=== PATIENT | female | born 1985 | race Hispanic/Latino ===

== ENCOUNTER 2017-05-21 11:06 | Inpatient (IN) | payer MEDICAID ==
[~2017-05-21] VITALS: Ht 162.6 cm; Wt 99.3 kg
[2017-05-21] MEDS ORDERED: LACTATED RINGERS 1000ML 1,000 ML IV PRN (11:34)
[2017-05-21] MEDS ORDERED: LACTATED RINGERS 1000ML 1,000 ML IV ONE ×3 (11:41→13:25)
[2017-05-21] MEDS ORDERED: NALOXONE HCL 0.4 MG/1 ML ML IV PRN (11:45)
[2017-05-21] MEDS ORDERED: LACTATED RINGERS 500 ML 500 ML IV PRN (11:45)
[2017-05-21] MEDS ORDERED: EPHEDRINE SULFATE 50 MG/ML AMPULE IVP PRN (11:45)
[2017-05-21 11:56] LABS: HEMATOCRIT 33.5 % (36-48); MEAN CORPUSCULAR HEMOGLOBIN 28.2 pg (27.0-33.0); MEAN CORPUSCULAR HGB CONC 33.7 g/dL (32.0-36.0); MEAN CORPUSCULAR VOLUME 83.8 fL (79-99); PLATELET COUNT (AUTO) 274 K/uL (130-400); RED BLOOD CELL COUNT(AUTO) 3.99 MIL/uL (4.00-5.50); RED CELL DISTRIBUTION WIDTH 13.2 % (11.0-15.5); WHITE BLOOD COUNT (AUTO) 12.2 K/uL (4.8-10.8)
[2017-05-21] MEDS ORDERED: PROMETHAZINE HCL 25 MG/ML 1ML AMPULE IM SCH (12:00)
[2017-05-21 12:02] LABS: APPEARANCE,URINE Clear (CLEAR); BILIRUBIN,URINE Negative (NEGATIVE); COLOR,URINE Dark Yellow (YELLOW); GLUCOSE, URINE (UA) Negative (NEGATIVE); KETONES,URINE Trace mg/dL (NEGATIVE); LEUKOCYTE ESTERASE ,URINE Small (NEGATIVE); NITRATE,URINE Negative (NEGATIVE); OCCULT BLOOD,URINE Negative (NEGATIVE); PROTEIN,URINE Negative (NEGATIVE)
[2017-05-21 12:22] LABS: BACTERIA,URINE Rare /HPF (None Seen); RBC,URINE None Seen /HPF (0-1); WBC,URINE 0-1 /HPF (0-1)
[2017-05-21 12:23] LABS: MUCUS,URINE Moderate LPF (None Seen); SQUAMOUS EPITHELIAL CELL,UR Few /HPF (0-2)
[2017-05-21] MEDS ORDERED: MEPERIDINE-PF 50 MG/ML SYG IVP ONE (12:55)
[2017-05-21] MEDS ORDERED: OXYTOCIN 10 USP UNITS/ML ONE (13:25)
[2017-05-21] MEDS ORDERED: OXYTOCIN 10 USP UNITS/ML 20 UNIT in LACTATED RINGERS 1000ML 1,000 ML IV SCH (13:30)
[2017-05-21] MEDS ORDERED: MEASLES/MUMPS/RUBELLA VACCINE, LIVE 0.5 ML/VIAL SQ PRN (15:15)
[2017-05-21] MEDS ORDERED: ACETAMINOPHEN 325 MG TAB PO PRN (15:15)
[2017-05-21] MEDS ORDERED: BENZOCAINE/LANOLIN/ALOE VERA 60 ML AEROSOL TP PRN (15:15)
[2017-05-21] MEDS ORDERED: DIPH,PERTUSS(ACELL),TET VAC/PF 0.5 ML VIAL IM PRN (15:15)
[2017-05-21] MEDS ORDERED: WITCH HAZEL 1 PAD TP PRN (15:15)
[2017-05-21] MEDS ORDERED: OXYTOCIN-LR 20 UNITS/1000 ML 1,000 ML IV SCH (15:15)
[2017-05-21] MEDS ORDERED: LANOLIN 30GM OINTMENT TP PRN (15:15)
[2017-05-21 17:35] VITALS: BP 117/70
[2017-05-21] MEDS: IBUPROFEN 600 MG TABLET PO PRN (18:03)
[2017-05-21 19:25] VITALS: BP 119/62
[2017-05-21] MEDS: DOCUSATE SODIUM 100 MG CAP PO SCH (20:43)
[2017-05-21 23:13] VITALS: BP 92/59
[2017-05-22 03:30] VITALS: BP 120/71
[2017-05-22] MEDS: IBUPROFEN 600 MG TABLET PO PRN ×2 (05:27→14:59)
[2017-05-22 06:48] LABS: HEMATOCRIT 30.9 % (36-48); MEAN CORPUSCULAR HEMOGLOBIN 27.8 pg (27.0-33.0); MEAN CORPUSCULAR HGB CONC 33.1 g/dL (32.0-36.0); MEAN CORPUSCULAR VOLUME 84.1 fL (79-99); PLATELET COUNT (AUTO) 221 K/uL (130-400); RED BLOOD CELL COUNT(AUTO) 3.67 MIL/uL (4.00-5.50); WHITE BLOOD COUNT (AUTO) 12.3 K/uL (4.8-10.8)
[2017-05-22 07:20] VITALS: BP 96/56
[2017-05-22 07:29] LABS: HEPATITIS Bs ANTIGEN SCREEN P Negative (Negative)
[2017-05-22] MEDS: DOCUSATE SODIUM 100 MG CAP PO SCH (10:12)
[2017-05-22 11:29] VITALS: BP 112/62
== END 2017-05-22 15:10 | disposition home or self-care (01) | DRG 560 ==
LOC: LDH 11:06 → OBSVTOIN 11:06 → WSH 17:30
PROC: 10E0XZZ Delivery of Products of Conception, External Approach (ICD-10-PCS; principal; 2017-05-21)
PROC: 3E0234Z Introduction of Serum, Toxoid and Vaccine into Muscle, Percutaneous Approach (ICD-10-PCS; 2017-05-21)
PROC: 3E0134Z Introduction of Serum, Toxoid and Vaccine into Subcutaneous Tissue, Percutaneous Approach (ICD-10-PCS; 2017-05-21)
PROC: 3E0R3BZ Introduction of Anesthetic Agent into Spinal Canal, Percutaneous Approach (ICD-10-PCS; 2017-05-21)
PROC: 00HU33Z Insertion of Infusion Device into Spinal Canal, Percutaneous Approach (ICD-10-PCS; 2017-05-21)
DX: O80 Encounter for full-term uncomplicated delivery (principal); O09.30 Supervision of pregnancy with insufficient antenatal care, unspecified trimester; Z23 Encounter for immunization; Z37.0 Single live birth; Z3A.38 38 weeks gestation of pregnancy
CPT/HCPCS: 36415; 81001; 85027; 86592; 86850; 86900; 86901; 87340; 90715; A4314; A4351; J2175; J2550; J2590; J7120

== ENCOUNTER 2018-04-01 05:57 | Inpatient (IN) | payer MEDICAID | END 2018-04-02 12:20 | disposition home or self-care (01) | LOC: LDH 05:57 → WSH 13:45 | PROC: 10E0XZZ Delivery of Products of Conception, External Approach (ICD-10-PCS; principal; ~2018-04-01) | DX: O75.3 Other infection during labor (principal); B95.1 Streptococcus, group B, as the cause of diseases classified elsewhere; Z3A.00 Weeks of gestation of pregnancy not specified; Z37.0 Single live birth ==